=== PATIENT | female | born 1970 | race Caucasian/White ===

== ENCOUNTER 2016-04-08 17:59 | Emergency (ER) | payer BC, OTHER ==
[2016-04-08] MEDS ORDERED: OPTIRAY 350 100 ML VIAL HMH IV ONE (18:00)
== END 2016-04-09 00:11 | disposition home or self-care (01) ==
LOC: ER 17:59
DX: R07.2 Precordial pain (principal); R55 Syncope and collapse
CPT/HCPCS: 36415; 71010; 71260; 80053; 82550; 83735; 84484; 85025; 85379; 85610; 85730; 93005